=== PATIENT | male | born 1965 | race Caucasian/White ===

== ENCOUNTER → 2017-11-17 | Outpatient (CLI) | payer OTHER ==
[~2017-11-17] VITALS: Ht 170.2 cm; Wt 129.2 kg
[~2017-11-17] MED LIST: ATIVAN0.5 MG PO; BENICAR40 MG PO; GLUCOPHAGE500 MG PO; HALDOL2 MG PO; LO-DOSE ASPIRIN81 M1 PO
== END | disposition home or self-care (01) ==
LOC: AMB 11:14
PROVIDERS: Internal Medicine Gastroenterology
PROC: 0DBN8ZX Excision of Sigmoid Colon, Via Natural or Artificial Opening Endoscopic, Diagnostic (ICD-10-PCS; principal; 2017-11-17)
DX: K63.5 Polyp of colon (principal); Z86.010 Personal history of colon polyps
CPT/HCPCS: 82948; 88305; 93005